=== PATIENT | male | born 1990 | race Caucasian/White ===

== ENCOUNTER 2020-02-08 07:06 | Emergency (ER) | payer OTHER ==
[2020-02-08 07:26] VITALS: BMI 21.7
--- NOTE | 2020-02-08 07:42 | PDOC ---
History of Present Illness - General Chief Complaint: Nausea/Vomiting Stated Complaint: VOMITING Time Seen by Provider: 02/08/20 07:32 - History of Present Illness Initial Comments: Keith Carter is a 29 y/o male with PMH significant for rheumatoid arthritis presenting today with nausea and vomiting x10 times. Reports that he does not usually drink ETOH, but did last night. Reports drinking 2 vodka drinks yesterday evening around 6pm, and another two champagne drinks at midnight. No chest pain/shortness of breath. No abd pain. No leg swelling. No diarrhea/dysuria. No fever/chills. SocHx: smokes 7 oz marijuana daily Past History - Medical History Allergies/Adverse Reactions: Allergies Allergy/AdvReac Type Severity Reaction Status Date / Time No Known Allergies Allergy Verified 02/08/20 07:20 Home Medications: Ambulatory Orders NK [No Known Home Medication] 09/08/17 Anemia: No Asthma: No Cancer: No Cardiac Disorders: No CVA: No COPD: No CHF: No Dementia: No Diabetes: No GI Disorders: No Disorders: No HTN: No Hypercholesterolemia: No Liver Disease: No Seizures: No Thyroid Disease: No - Immunization History Immunization Up to Date: Yes - Psycho-Social/Smoking History Smoking Status: No Smoking History: Never smoked Have you smoked in the past 12 months: No Number of Cigarettes Smoked Daily: 0 Cigars Per Day: 0 - Substance Abuse Hx (Audit-C & DAST Scrn) How often the patient has a drink containing alcohol: Monthly or less Score: In Men: 4 or > Positive; In Women: 3 or > Positive: 1 Screen Result (Pos requires Nsg. Audit-10AR): Negative In the last yr the pt used illegal drug/Rx for NonMed reason: Yes Score: Yes response is considered Positive: 1 Screen Result (Positive result requires Nsg. DAST-10): Positive Review of Systems - Review of Systems Comments:: GENERAL/CONSTITUTIONAL: No fever or chills. No weakness._ HEAD, EYES, EARS, NOSE AND THROAT: No change in vision. No change in hearing. No sore throat._ CARDIOVASCULAR: No chest pain or shortness of breath_ RESPIRATORY: Denies cough, hemoptysis_ GASTROINTESTINAL: Reports nausea and vomiting. No diarrhea or constipation._ GENITOURINARY: No dysuria, frequency, or change in urination._ MUSCULOSKELETAL: No joint or muscle swelling or pain. No neck or back pain._ SKIN: No rash_ NEUROLOGIC: No headache, vertigo, loss of consciousness, or change in strength/sensation._ ENDOCRINE: No increased thirst. No abnormal weight change_ HEMATOLOGIC/LYMPHATIC: No anemia, easy bleeding, or history of blood clots._ ALLERGIC/IMMUNOLOGIC: No hives or skin allergy._ *Physical Exam - Vital Signs Last Vital Signs Temp Pulse Resp BP Pulse Ox 98.5 F 70 18 104/67 100 02/08/20 07:21 02/08/20 07:21 02/08/20 07:21 02/08/20 07:21 02/08/20 07:21 - Physical Exam GENERAL: Awake, alert, and oriented to person/place/time, in no acute distress_ HEAD: No signs of trauma, normocephalic, atraumatic _ EYES: PERRLA, EOMI, sclera anicteric, conjunctiva clear_ ENT: Hearing grossly normal, nares patent, oropharynx clear without exudates. No uvular deviation. Moist mucosa. No tongue fasciculations. NECK: Normal ROM, supple, no lymphadenopathy, JVD, or masses_ LUNGS: No distress, speaks in full sentences, clear to auscultation bilaterally _ HEART: Regular rate and rhythm, normal S1 and S2, no murmurs appreciated, periph eral pulses normal and equal bilaterally._ ABDOMEN: Soft, nontender, normoactive bowel sounds. No guarding, no rebound. No masses_ EXTREMITIES: Normal inspection, Normal range of motion, no edema. No clubbing or cyanosis. No resting tremors. NEUROLOGICAL: Cranial nerves II through XII grossly intact. Normal speech, normal gait, no focal sensorimotor deficits _ SKIN: Warm, Dry, normal turgor, no rashes or lesions noted_ ED Treatment Course - LABORATORY CBC & Chemistry Diagram: 02/08/20 07:55 02/08/20 07:55 Medical Decision Making - Medical Decision Making 02/08/20 07:46 29M hx of RA, presenting today after drinking 4 drinks yesterday evening and 10 episodes of vomiting since 2am this morning. No signs of ETOH withdrawal. Smokes marijuana regularly. Abdomen soft and non tender. DDx includes ETOH intoxication vs cyclic vomiting syndrome vs r/o etoh p ancreatitis. -cbc, cmp -fluids -lipase 02/08/20 09:33 Labs reviewed. Laboratory Last Values WBC 6.8 K/mm3 (4.0-10.0) 02/08/20 07:55 RBC 4.85 M/mm3 (4.00-5.60) 02/08/20 07:55 Hgb 15.6 GM/dL (11.7-16.9) 02/08/20 07:55 Hct 45.7 % (35.4-49) 02/08/20 07:55 MCV 94.2 fl (80-96) 02/08/20 07:55 MCH 32.2 pg (25.7-33.7) 02/08/20 07:55 MCHC 34.2 g/dl (32.0-35.9) 02/08/20 07:55 RDW 12.8 % (11.9-15.9) 02/08/20 07:55 Plt Count 155 K/MM3 (134-434) D 02/08/20 07:55 MPV 11.3 fl (7.5-11.1) H 02/08/20 07:55 Absolute Neuts (auto) 5.3 K/mm3 (1.5-8.0) 02/08/20 07:55 Neutrophils % 77.6 % (42.8-82.8) 02/08/20 07:55 Lymphocytes % 16.2 % (8-40) D 02/08/20 07:55 Monocytes % 5.2 % (3.8-10.2) 02/08/20 07:55 Eosinophils % 0.3 % (0-4.5) 02/08/20 07:55 Basophils % 0.7 % (0-2.0) 02/08/20 07:55 Nucleated RBC % 0 % (0-0) 02/08/20 07:55 Sodium 140 mmol/L (136-145) 02/08/20 07:55 Potassium 4.1 mmol/L (3.5-5.1) 02/08/20 07:55 Chloride 104 mmol/L (98-107) 02/08/20 07:55 Carbon Dioxide 30 mmol/L (21-32) 02/08/20 07:55 Anion Gap 5 MMOL/L (8-16) L 02/08/20 07:55 BUN 11.0 mg/dL (7-18) 02/08/20 07:55 Creatinine 0.9 mg/dL (0.55-1.3) 02/08/20 07:55 Est GFR (CKD-EPI)AfAm 132.37 02/08/20 07:55 Est GFR (CKD-EPI)NonAf 114.21 02/08/20 07:55 Random Glucose 91 mg/dL (74-106) 02/08/20 07:55 Calcium 9.6 mg/dL (8.5-10.1) 02/08/20 07:55 Total Bilirubin 0.6 mg/dL (0.2-1) 02/08/20 07:55 AST 19 U/L (15-37) 02/08/20 07:55 ALT 31 U/L (13-61) 02/08/20 07:55 Alkaline Phosphatase 67 U/L (45-117) 02/08/20 07:55 Total Protein 7.1 g/dl (6.4-8.2) 02/08/20 07:55 Albumin 3.9 g/dl (3.4-5.0) 02/08/20 07:55 Lipase 185 U/L (73-393) 02/08/20 07:55 02/08/20 09:35 Pt reassessed. Exam unchanged. Tolerating PO. Nausea/vomiting resolved. Plan to d/c home with PCP f/u prn. All questions answered. Return precautions given. Pt verbalized understanding and agreement with plan. Discharge - Discharge Information Problems reviewed: Yes Clinical Impression/Diagnosis: Nausea & vomiting Condition: Stable Disposition: HOME - Admission No - Follow up/Referral Referrals: Reina Marquez [Primary Care Provider] - - Patient Discharge Instructions Patient Printed Discharge Instructions: DI for Vomiting -- Adult Additional Instructions: Please make a follow up appointment with your primary care doctor as needed this week. Please try to decrease or abstain from alcohol use. If you experience any new, worsening, or concerning symptoms, including severe nausea/vomiting, inability to keep down fluids, headache, dizziness, or any other concerns, please return to the emergency department. - Post Discharge Activity
[2020-02-08] MEDS ORDERED: SODIUM CHLORIDE 0.9% 500 ML INFUS.BAG IV ONE (07:46)
[2020-02-08] MEDS ORDERED: ONDANSETRON 4 MG/2 ML VIAL IVPUSH ONE (07:48)
[2020-02-08] MEDS ORDERED: ACETAMINOPHEN 1000 MG/100 ML VIAL (NON FORMULARY) IVPB ONE (07:53)
[2020-02-08] MEDS ORDERED: FAMOTIDINE 20 MG TABLET PO ONE (07:53)
[2020-02-08] MEDS ORDERED: FAMOTIDINE 20 MG/50 ML IVPB 20 MG/50 ML MG IVPB ONE ×2 (07:53→08:05)
[2020-02-08] MEDS ORDERED: ACETAMINOPHEN INJECTION 100 ML IVPB ONE (08:05)
--- NOTE | 2020-02-08 08:18 | PDOC ---
Attending Attestation - Resident Resident Name: Toyn Quiles - ED Attending Attestation I have performed the following: I have examined & evaluated the patient, The case was reviewed & discussed with the resident, I agree w/resident's findings & plan, Exceptions are as noted - HPI HPI: 02/08/20 08:17 29 M with RA presents to ED with N+V. Pt states that he drank heavily last night. About 4 cups of alcohol. Does not normally drink. Since then, pt has had diffuse abdominal cramps with N+V. Denies F/C. - Physicial Exam PE: 02/08/20 08:17 "GENERAL: Awake, alert, and fully oriented, in no acute distress. HEAD: No signs of trauma EYES: PERRLA, EOMI, sclera anicteric, conjunctiva clear ENT: Auricles normal inspection, hearing grossly normal, nares patent, oropharynx clear without exudates. Moist mucosa NECK: Nontender, no stepoffs, Normal ROM, supple, no lymphadenopathy, JVD, or masses LUNGS: Breath sounds equal, clear to auscultation bilaterally. No wheezes, and no crackles HEART: Regular rate and rhythm, normal S1 and S2, no murmurs, rubs or gallops ABDOMEN: + epigastric TTP, normoactive bowel sounds. No guarding, no rebound. No masses EXTREMITIES: Normal range of motion, no edema. No clubbing or cyanosis. No cords, erythema, or tenderness NEUROLOGICAL: Cranial nerves II through XII intact. 5/5 strength and sensation in all extremities, Normal speech, normal gait, normal cerebellar function SKIN: Warm, Dry, normal turgor, no rashes or lesions noted. - Medical Decision Making 02/08/20 08:18 29 M with N+V, likely 2/2 alcoholic gastritis. - Labs - GI cocktail Labs wnl Pt tolerating PO. Denies nausea or abdominal pain. Pt is well appearing, with normal vitals. Clinically stable for DC at this time. I discussed the physical exam findings, ancillary test results and final diagnoses with the patient. I answered all of the patient's questions. The patient was satisfied with the care received and felt comfortable with the discharge plan and treatment plan. The patient agrees to follow up with the primary care physician within 24-72 hours. Discharge - Discharge Information Problems reviewed: Yes Clinical Impression/Diagnosis: Nausea & vomiting Condition: Stable Disposition: HOME - Follow up/Referral Referrals: Reina Marquez [Primary Care Provider] - - Patient Discharge Instructions Patient Printed Discharge Instructions: DI for Vomiting -- Adult Additional Instructions: Please make a follow up appointment with your primary care doctor as needed this week. Please try to decrease or abstain from alcohol use. If you experience any new, worsening, or concerning symptoms, including severe nausea/vomiting, inability to keep down fluids, headache, dizziness, or any other concerns, please return to the emergency department. - Post Discharge Activity
[2020-02-08 08:42] LABS: BASO % 0.7 % (0-2.0); EOS % 0.3 % (0-4.5); HEMATOCRIT 45.7 % (35.4-49); HEMOGLOBIN 15.6 GM/dL (11.7-16.9); LYMPH % 16.2 % (8-40); MCH 32.2 pg (25.7-33.7); MCHC 34.2 g/dl (32.0-35.9); MEAN CELL VOLUME 94.2 fl (80-96); MEAN PLT VOLUME 11.3 fl (7.5-11.1); MONO % 5.2 % (3.8-10.2); NEUT % 77.6 % (42.8-82.8); PLATELET COUNT 155 K/MM3 (134-434); RBC 4.85 M/mm3 (4.00-5.60); RDW 12.8 % (11.9-15.9); WHITE BLOOD COUNT 6.8 K/mm3 (4.0-10.0)
[2020-02-08 09:12] LABS: ALBUMIN 3.9 g/dl (3.4-5.0); BILIRUBIN,TOTAL 0.6 mg/dL (0.2-1); CALCIUM 9.6 mg/dL (8.5-10.1); CREATININE 0.9 mg/dL (0.55-1.3); POTASSIUM 4.1 mmol/L (3.5-5.1); TOT PROT 7.1 g/dl (6.4-8.2)
[2020-02-08 09:44] VITALS: BP 106/61; PULSE 74; TEMP 98.2
== END 2020-02-08 09:52 | disposition home or self-care (01) ==
LOC: JER 07:06
PROC: 3E033NZ Introduction of Analgesics, Hypnotics, Sedatives into Peripheral Vein, Percutaneous Approach (ICD-10-PCS; principal; 2020-02-08)
PROC: 3E033GC Introduction of Other Therapeutic Substance into Peripheral Vein, Percutaneous Approach (ICD-10-PCS; 2020-02-08)
DX: R11.2 Nausea with vomiting, unspecified (principal)
CPT/HCPCS: 36415; 80053; 83690; 85025; 99285-25; J0131

== ENCOUNTER 2020-04-14 08:29 | Emergency (ER) | payer OTHER ==
[2020-04-14 08:34] VITALS: TEMP 99.9; BMI 21.7
[2020-04-14] MEDS ORDERED: ONDANSETRON 4 MG/2 ML VIAL IVPUSH ONE (08:51)
[2020-04-14] MEDS ORDERED: SODIUM CHLORIDE 1,000 ML IV STA (08:51)
--- NOTE | 2020-04-14 08:56 | PDOC ---
History of Present Illness - General Chief Complaint: Nausea/Vomiting Stated Complaint: VOMITING/NAUSEA Time Seen by Provider: 04/14/20 08:44 History Source: Patient - History of Present Illness Timing/Duration: reports: other (this am) Quality: reports: moderate Past History - Medical History Allergies/Adverse Reactions: Allergies Allergy/AdvReac Type Severity Reaction Status Date / Time No Known Allergies Allergy Verified 04/14/20 08:31 Home Medications: Ambulatory Orders Ondansetron HCl [Zofran] 4 mg PO Q8H #12 tablet 04/14/20 Anemia: No Asthma: No Cancer: No Cardiac Disorders: No CVA: No COPD: No CHF: No Dementia: No Diabetes: No GI Disorders: No Disorders: No HTN: No Hypercholesterolemia: No Liver Disease: No Seizures: No Thyroid Disease: No - Immunization History Immunization Up to Date: No - Psycho-Social/Smoking History Smoking Status: No Smoking History: Never smoked Have you smoked in the past 12 months: No Number of Cigarettes Smoked Daily: 0 Cigars Per Day: 0 - Substance Abuse Hx (Audit-C & DAST Scrn) How often the patient has a drink containing alcohol: Monthly or less Number of drinks the patient has on a typical day: 1 or 2 How often the patient has six or more drinks on one occasion: Never Score: In Men: 4 or > Positive; In Women: 3 or > Positive: 1 Screen Result (Pos requires Nsg. Audit-10AR): Negative In the last yr the pt used illegal drug/Rx for NonMed reason: No Score: Yes response is considered Positive: 0 Screen Result (Positive result requires Nsg. DAST-10): Negative Review of Systems - Review of Systems Constitutional: No: Chills, Fever ABD/GI: Yes: Nausea, Vomiting. No: Constipated, Diarrhea : No: Dysuria *Physical Exam - Vital Signs Last Vital Signs Temp Pulse Resp BP Pulse Ox 99.9 F H 87 18 98/69 100 04/14/20 08:31 04/14/20 08:31 04/14/20 08:31 04/14/20 08:31 04/14/20 08:31 - Physical Exam General Appearance: Yes: Appropriately Dressed, Moderate Distress HEENT: positive: Normal Voice Neck: positive: Supple Respiratory/Chest: negative: Respiratory Distress Gastrointestinal/Abdominal: positive: Tender (to epoigatsrium), Soft Musculoskeletal: negative: CVA Tenderness Integumentary: positive: Dry, Warm Neurologic: positive: Fully Oriented, Alert, Normal Mood/Affect ED Treatment Course - LABORATORY CBC & Chemistry Diagram: 04/14/20 09:14 04/14/20 09:14 Medical Decision Making - Medical Decision Making 04/14/20 08:54 29-year-old male no significant history here with intractable nausea vomiting since this a.m. Patient states he usually does not drink alcohol but drank "3 shots of Rossy" last night. Also reports epigastric discomfort that started at some point after vomiting per patient. No hematemesis change in bowel movements fever or chills. Patient was seen for same > 1 month ago. Pt also admits to daily marijuana use see exam N/V M/l 2/2 ETOH intake per hx Also smokes cannibus daily Appears very uncomfortable and actively vomiting in ED, +epigastric ttp -zofran -IVF -labs -reassess 04/14/20 10:46 Pt reports feeling sig better and able to zachery po. Labs unremarkable. Discharge with small dose of Zofran and instructed to refrain from alcohol and cannabis. To return as needed Discharge - Discharge Information Problems reviewed: Yes Clinical Impression/Diagnosis: Nausea & vomiting Qualifiers: Vomiting type: unspecified Vomiting Intractability: non-intractable Qualified Code(s): R11.2 - Nausea with vomiting, unspecified Condition: Improved Disposition: HOME - Additional Discharge Information Prescriptions: Ondansetron HCl [Zofran] 4 mg PO Q8H #12 tablet - Follow up/Referral - Patient Discharge Instructions Additional Instructions: Please refrain from alcohol and cannabis use You were prescribed a small dose of Zofran, take as needed If symptoms worsen return to the ER - Post Discharge Activity
[2020-04-14] MEDS ORDERED: FAMOTIDINE 20 MG/50 ML IVPB 20 MG/50 ML MG IVPB ONE (09:12)
[2020-04-14 09:37] LABS: BASO % 0.5 % (0-2.0); EOS % 0.6 % (0-4.5); HEMATOCRIT 46.2 % (35.4-49); HEMOGLOBIN 15.9 GM/dL (11.7-16.9); LYMPH % 21.8 % (8-40); MCH 32.2 pg (25.7-33.7); MCHC 34.3 g/dl (32.0-35.9); MEAN CELL VOLUME 93.7 fl (80-96); MEAN PLT VOLUME 10.8 fl (7.5-11.1); MONO % 6.3 % (3.8-10.2); NEUT % 70.8 % (42.8-82.8); PLATELET COUNT 146 K/MM3 (134-434); RBC 4.93 M/mm3 (4.00-5.60); RDW 12.5 % (11.9-15.9); WHITE BLOOD COUNT 11.1 K/mm3 (4.0-10.0)
[2020-04-14 10:00] LABS: ALBUMIN 4.1 g/dl (3.4-5.0); BILIRUBIN,TOTAL 0.9 mg/dL (0.2-1); BLOOD UREA NITROGEN 12.7 mg/dL (7-18); CALCIUM 9.7 mg/dL (8.5-10.1); CREATININE 0.9 mg/dL (0.55-1.3); POTASSIUM 3.8 mmol/L (3.5-5.1); TOT PROT 7.2 g/dl (6.4-8.2)
[2020-04-14 11:14] VITALS: BP 101/68; PULSE 78
== END 2020-04-14 11:14 | disposition home or self-care (01) ==
LOC: JER 08:29
PROC: 3E033GC Introduction of Other Therapeutic Substance into Peripheral Vein, Percutaneous Approach (ICD-10-PCS; principal; 2020-04-14)
PROC: 3E0337Z Introduction of Electrolytic and Water Balance Substance into Peripheral Vein, Percutaneous Approach (ICD-10-PCS; 2020-04-14)
DX: R11.2 Nausea with vomiting, unspecified (principal)
CPT/HCPCS: 36415; 80053; 83690; 85025; 99284-25

== ENCOUNTER 2020-12-03 05:43 | Emergency (ER) | payer OTHER ==
[2020-12-03] MEDS ORDERED: ONDANSETRON 4 MG/2 ML VIAL IVPUSH ONE (05:59)
[2020-12-03] MEDS ORDERED: SODIUM CHLORIDE 0.9% 500 ML INFUS.BAG IV ONE (05:59)
[2020-12-03] MEDS ORDERED: ONDANSETRON 4 MG/2 ML VIAL ONE (06:03)
[2020-12-03 06:29] LABS: BASO % 1.1 % (0-2.0); EOS % 1.1 % (0-4.5); HEMATOCRIT 46.7 % (35.4-49); HEMOGLOBIN 16.1 GM/dL (11.7-16.9); LYMPH % 34.5 % (8-40); MCH 32.3 pg (25.7-33.7); MCHC 34.5 g/dl (32.0-35.9); MEAN CELL VOLUME 93.5 fl (80-96); MONO % 6.5 % (3.8-10.2); NEUT % 56.8 % (42.8-82.8); PLATELET COUNT 148 K/MM3 (134-434); RBC 4.99 M/mm3 (4.00-5.60); RDW 12.5 % (11.9-15.9); WHITE BLOOD COUNT 7.1 K/mm3 (4.0-10.0)
[2020-12-03 06:30] VITALS: BP 149/101; PULSE 80; TEMP 98.1; BMI 21.7
[2020-12-03 06:36] LABS: INR 1.07 (0.83-1.09); PROTHROMBIN TIME (PATIENT) 13.1 SEC (9.7-13.0)
[2020-12-03 06:39] LABS: ACTIVATED PTT 26.8 SECONDS (25.2-36.5)
[2020-12-03 06:44] LABS: CALCIUM 9.5 mg/dL (8.5-10.1)
[2020-12-03 06:45] LABS: ALBUMIN 4.2 g/dl (3.4-5.0); BLOOD UREA NITROGEN 11.1 mg/dL (7-18); CO2 30 mmol/L (21-32); GLUCOSE,RANDOM 111 mg/dL (74-106); MAGNESIUM 1.9 mg/dL (1.8-2.4)
[2020-12-03 06:48] LABS: SGOT/AST 26 U/L (15-37); SGPT/ALT 35 U/L (13-61)
[2020-12-03 06:49] LABS: ANION GAP 9 MMOL/L (8-16); BILIRUBIN,TOTAL 0.4 mg/dL (0.2-1); CHLORIDE 102 mmol/L (98-107); SODIUM 141 mmol/L (136-145); TOT PROT 7.3 g/dl (6.4-8.2)
[2020-12-03 06:50] LABS: ALK PHOS 68 U/L (45-117)
[2020-12-03] MEDS ORDERED: HALOPERIDOL LACTATE 5 MG/ML IV ONE (07:36)
[2020-12-03] MEDS ORDERED: HALOPERIDOL LACTATE 5 MG/ML ONE (07:51)
== END 2020-12-03 08:40 | disposition home or self-care (01) ==
LOC: JER 05:43
PROC: 3E033GC Introduction of Other Therapeutic Substance into Peripheral Vein, Percutaneous Approach (ICD-10-PCS; principal; 2020-12-03)
PROC: 3E033GC Introduction of Other Therapeutic Substance into Peripheral Vein, Percutaneous Approach (ICD-10-PCS; 2020-12-03)
DX: R11.2 Nausea with vomiting, unspecified (principal)
CPT/HCPCS: 36415; 71045-TC-FY; 80053; 80307; 83735; 85025; 85610; 85730; 86850; 86900; 86901; 93005; 93010; 99285-25; C9803; U0003; U0005

== ENCOUNTER 2023-10-11 12:03 | Emergency (ER) | payer OTHER ==
[2023-10-11 12:08] VITALS: RESP 18; BMI 26.4
[2023-10-11] MEDS ORDERED: MAG HYDROX/AL HYDROX/SIMETH 30 ML UNIT-DOSE CUP ONE (13:55)
[2023-10-11] MEDS ORDERED: DICYCLOMINE HCL 10 MG CAPSULE ONE (13:55)
[2023-10-11] MEDS: DICYCLOMINE HCL 20 MG TABLET PO ONE (13:58)
[2023-10-11] MEDS: MAG HYDROX/AL HYDROX/SIMETH 30 ML UNIT-DOSE CUP PO ONE (13:58)
[2023-10-11 13:59] LABS: BASO % 0.6 % (0-2.0); EOS % 2.5 % (0-4.5); HEMATOCRIT 47.8 % (35.4-49); HEMOGLOBIN 15.8 GM/dL (11.7-16.9); LYMPH % 30.6 % (8-40); MCHC 32.9 g/dl (32.0-35.9); MEAN CELL VOLUME 91.1 fl (80-96); MEAN PLT VOLUME 10.2 fl (7.5-11.1); MONO % 7.4 % (3.8-10.2); NEUT % 58.9 % (42.8-82.8); PLATELET COUNT 167 10^3/uL (134-434); RBC 5.25 M/mm3 (4.00-5.60); RDW 12.8 % (11.9-15.9); WHITE BLOOD COUNT 6.4 K/mm3 (4.0-10.0)
[2023-10-11 14:24] LABS: POTASSIUM 4.3 mmol/L (3.5-5.1)
[2023-10-11 14:26] LABS: CALCIUM 9.2 mg/dL (8.5-10.1)
[2023-10-11 14:28] LABS: ALBUMIN 3.7 g/dl (3.4-5.0); BLOOD UREA NITROGEN 9.6 mg/dL (7-18); MAGNESIUM 1.9 mg/dL (1.8-2.4)
[2023-10-11 14:30] LABS: CREATININE 0.8 mg/dL (0.55-1.3)
[2023-10-11 14:31] LABS: BILIRUBIN,TOTAL 0.5 mg/dL (0.2-1)
[2023-10-11 16:47] VITALS: BP 114/73; PULSE 68; TEMP 98.3
== END 2023-10-11 18:10 | disposition home or self-care (01) ==
LOC: JER 12:03
DX: R10.30 Lower abdominal pain, unspecified (principal); K62.5 Hemorrhage of anus and rectum; K57.31 Diverticulosis of large intestine without perforation or abscess with bleeding
CPT/HCPCS: 36415; 74174-TC; 80053; 82272; 83605; 83690; 83735; 85025; 86850; 86900; 86901; 99284-25; Q9967

== ENCOUNTER 2023-12-15 20:05 | Emergency (ER) | payer OTHER ==
[2023-12-15 20:15] VITALS: BP 122/77; PULSE 85; RESP 18; TEMP 98.5; BMI 25.8
[2023-12-15] MEDS ORDERED: LIDOCAINE 4% PATCH TP ONE (20:32)
[2023-12-15] MEDS ORDERED: KETOROLAC TROMETHAMINE 30 MG/1 ML VIAL ONE (20:32)
[2023-12-15] MEDS: KETOROLAC TROMETHAMINE 15 MG/ML VIAL IM ONE (20:37)
[2023-12-15] MEDS: LIDOCAINE 5% TOPICAL PATCH TP ONE (20:37)
[2023-12-15] MEDS ORDERED: LIDOCAINE PATCH REMOVAL MC SCH (22:00)
== END 2023-12-15 20:56 | disposition home or self-care (01) ==
LOC: JERFT 20:05
PROC: 3E0233Z Introduction of Anti-inflammatory into Muscle, Percutaneous Approach (ICD-10-PCS; principal; 2023-12-15)
DX: S16.1XXA Strain of muscle, fascia and tendon at neck level, initial encounter (principal); V43.52XA Car driver injured in collision with other type car in traffic accident, initial encounter; Y92.410 Unspecified street and highway as the place of occurrence of the external cause
CPT/HCPCS: 99284-25